=== PATIENT | male | born 1940 | race Two or more races ===

== ENCOUNTER 2019-09-10 12:48 | Emergency (ER) | payer BC ==
[~2019-09-10] VITALS: Ht 162.6 cm; Wt 65.0 kg
[2019-09-10 17:04] VITALS: BP 122/79
== END 2019-09-10 17:06 | disposition home or self-care (01) ==
LOC: ER 13:14
DX: S99.822A Other specified injuries of left foot, initial encounter (principal); E11.9 Type 2 diabetes mellitus without complications; Z90.49 Acquired absence of other specified parts of digestive tract; X58.XXXA Exposure to other specified factors, initial encounter; Y93.89 Activity, other specified; Y92.018 Other place in single-family (private) house as the place of occurrence of the external cause
CPT/HCPCS: 99283